=== PATIENT | male | born 1995 | race Hispanic/Latino ===

== ENCOUNTER 2024-03-08 18:12 | Emergency (ER) | payer BC ==
[~2024-03-08] VITALS: Ht 162.6 cm; Wt 108.9 kg
[2024-03-08 18:17] VITALS: TEMP 98.6
[2024-03-08 18:41] LABS: BASOPHILS % 0.3 % (0.0-1.0); EOSINOPHILS # (AUTO) 0.1 (0.0-0.4); EOSINOPHILS % 0.5 % (0.0-6.0); HEMATOCRIT 45.6 % (38.2-49.6); HEMOGLOBIN 15.5 g/dL (14.0-18.0); LYMPHOCYTES # (AUTO) 3.7 (1.0-3.2); LYMPHOCYTES % 27.1 % (18.0-39.1); MEAN CORPUSCULAR HEMOGLOBIN 29.8 pg (28-32); MEAN CORPUSCULAR VOLUME 87.5 fL (81-99); MONOCYTES # (AUTO) 1.3 (0.2-0.8); MONOCYTES % 9.3 % (4.4-11.3); NEUTROPHILS # (AUTO) 8.5 (2.1-6.9); NEUTROPHILS % 62.6 % (38.7-80.0); PLATELET COUNT 259 x10e3/uL (140-360); RED BLOOD COUNT 5.21 x10e6/uL (4.3-5.7); WHITE BLOOD COUNT 13.54 x10e3/uL (4.8-10.8)
[2024-03-08] MEDS: HYDROXYZINE HCL 25 MG TAB PO ONE (18:49)
[2024-03-08 18:59] LABS: ALBUMIN/GLOBULIN RATIO 1.2 (0.8-2.0); ANION GAP 15.4 mmol/L (8-16); CREATININE, SERUM 0.71 mg/dL (0.72-1.25); TOTAL PROTEIN 7.4 g/dL (6.5-8.1)
[2024-03-08 19:03] LABS: POTASSIUM 3.4 mmol/L (3.5-5.1)
[2024-03-08 20:47] VITALS: PULSE 78; RESP 16
[2024-03-08] MEDS ORDERED: HYDROXYZINE HCL25 MG PO (20:50)
[2024-03-08 21:00] VITALS: BP 140/96; PULSE 78; RESP 16; TEMP 98.6; O2SAT 98
== END 2024-03-08 20:58 | disposition home or self-care (01) ==
LOC: ER 18:16
DX: R00.2 Palpitations (principal); F41.9 Anxiety disorder, unspecified; E11.9 Type 2 diabetes mellitus without complications
CPT/HCPCS: 36415; 71045; 80053; 84484; 85025; 93005; 99284; J3410